=== PATIENT | female | born 1950 | race Caucasian/White ===

== ENCOUNTER 2017-08-09 06:24 | Day surgery (SDC) | payer MEDICARE ==
[2017-08-09] MEDS ORDERED: SOD CHLORIDE 0.9% 1,000 ML IV (07:00)
[2017-08-09 07:02] LABS: ADD MAN DIFF? NO
[2017-08-09 07:44] LABS: WHITE BLOOD COUNT 9.2 10^3/ul (4.8-10.8)
[2017-08-09 07:44] LABS: BASOPHIL # 0.1 10^3/ul (0.0-0.1); BASOPHILS % 0.5 % (0.0-2.0); EOSINOPHILS # 0.1 10^3/ul (0.0-0.5); EOSINOPHILS % 1.1 % (0.0-7.0); HEMATOCRIT 50.5 % (37.0-47.0); LYMPHOCYTES % 21.5 % (15.0-51.0); MEAN CORPUSCULAR HGB CONC 35.6 g/dl (32.0-37.0); MEAN CORPUSCULAR VOLUME 92.7 fl (82.0-101.0); MEAN PLATELET VOLUME 11.6 fl (7.4-10.4); MONOCYTES % 10.5 % (0.0-11.0); NEUTROPHIL # 6.1 10^3/ul (1.6-7.5); NEUTROPHILS % 65.9 % (39.0-77.0); PLATELET COUNT 182 10^3/UL (140-415); RED BLOOD COUNT 5.45 10^6/ul (4.20-5.40); RED CELL DISTRIBUTION WIDTH 12.6 % (11.5-14.5)
[2017-08-09] MEDS ORDERED: LIDOCAINE 1% (MDV) 20 ML INJ (07:45)
[2017-08-09] MEDS ORDERED: HEPARIN 1000 UNITS/ML 10 ML INJ (07:45)
[2017-08-09] MEDS ORDERED: VERAPAMIL 5 MG INJ (07:45)
[2017-08-09] MEDS ORDERED: IODIXANOL LOCM 100 ML BTL ×2 (07:46→07:47)
[2017-08-09] MEDS ORDERED: NITROGLYCERIN (IC) 100 MCG/ML INJ (07:46)
[2017-08-09 07:48] LABS: ALANINE AMINOTRANSFERASE 20 IU/L (13-69); ALBUMIN 4.6 g/dl (3.3-4.9); ALBUMIN/GLOBULIN RATIO 1.31; ALKALINE PHOSPHATASE 94 IU/L (42-121); ANION GAP 13 (8-16); ASPARTATE AMINO TRANSFERASE 24 IU/L (15-46); BILIRUBIN,INDIRECT 0.4 mg/dl (0-1.1); BILIRUBIN,TOTAL 0.4 mg/dl (0.2-1.3); CARBON DIOXIDE 27 mmol/L (21-31); CHLORIDE 101 mmol/L (97-110); GLUCOSE 108 mg/dl (70-220); TOTAL PROTEIN 8.1 g/dl (6.1-8.1)
[2017-08-09 07:50] LABS: INR 0.99; PROTIME 13.2 Sec (11.9-14.9)
[2017-08-09 07:51] LABS: PARTIAL THROMBOPLASTIN TIME 26.4 Sec (25.0-35.0)
[2017-08-09 07:53] LABS: BLOOD UREA NITROGEN 6 mg/dl (7-20); CALCIUM 9.8 mg/dl (8.4-10.2); CREATININE 0.73 mg/dl (0.44-1.00); POTASSIUM 4.2 mmol/L (3.5-5.1); SODIUM 137 mmol/L (135-144)
[2017-08-09] MEDS ORDERED: MIDAZOLAM 1 MG/ML 2 ML INJ (08:10)
[2017-08-09] MEDS ORDERED: FENTAnyl 50 MCG/ML VIAL (08:31)
[2017-08-09] MEDS ORDERED: ACETAMINOPHEN 325 MG TAB PO (09:00)
[2017-08-09] MEDS ORDERED: AL HYDROX/MG HYDROX/SIMETH 30 ML CUP PO (09:00)
[2017-08-09] MEDS ORDERED: ONDANSETRON 4 MG INJ IV (09:00)
[2017-08-09] MEDS: SOD CHLORIDE 0.9% 1,000 ML IV (09:09)
[2017-08-09] MEDS ORDERED: hydrALAzine 20 MG INJ (10:33)
== END 2017-08-09 13:46 | disposition home or self-care (01) ==
LOC: CCL 06:24 → SDS 06:24 → CCL 13:46
DX: I25.10 Atherosclerotic heart disease of native coronary artery without angina pectoris (principal); I42.9 Cardiomyopathy, unspecified; I10 Essential (primary) hypertension
CPT/HCPCS: 80053; 85025; 85610; 85730; 93005; 93454